=== PATIENT | male | born 1955 | race Caucasian/White ===

== ENCOUNTER 2025-05-07 08:45 | Outpatient (CLI) | payer MEDICARE ==
[~2025-05-07 08:45] MED LIST: ASPI-1264 PO; IBUP-24 PO
--- NOTE | 2025-05-07 11:55 | RADIOLOGY REPORT ---
CLINICAL INDICATION: EFFUSION, RIGHT ANKLE TECHNIQUE: Noncontrast CT of the right ankle was performed. Sagittal and coronal reformatted images are provided. COMPARISON: None CT Dose: CTDI volume is 14.4 mGy. Dose-length product is 443.9 mGy*cm FINDINGS: There is arthrodesis across the subtalar joint with a partially threaded screw across the talus and the calcaneus. There is no solid osseous fusion across the joint space. There are subchondral cysts on both sides of the joint. There is a plate and screws noted in the dorsal surface of the forearm talus. Hardware is intact. There is narrowing of the 1st metatarsophalangeal joint. There is mild soft tissue swelling in the ankle. There is a varicose vein in the lateral ankle. No fracture or dislocation. No cortical destruction. No abnormal alignment. No significant joint effusion. IMPRESSION: 1. No acute fracture or dislocation. 2. Arthrodesis across the subtalar joint. No solid fusion is present across the subtalar joint at this time. 3. Mild soft tissue swelling of the ankle. All CT scans at this medical facility are performed using dose modulation techniques as appropriate to a performed exam including the following: Automated exposure control was utilized; adjustment of the MA and/or KV according to patient size; and use of iterative reconstruction technique.
== END 2025-05-07 23:59 | disposition home or self-care (01) ==
LOC: RAD 08:45
PROVIDERS: ATTEND Podiatrist Foot & Ankle Surgery
DX: M25.471 Effusion, right ankle (principal); M79.89 Other specified soft tissue disorders
CPT/HCPCS: 73700